=== PATIENT | male | born 1950 | race Caucasian/White ===

== ENCOUNTER → 2018-09-14 15:44 | Outpatient (CLI) | payer MEDICARE, OTHER, SELFPAY ==
[2018-09-14 15:54] LABS: Absolute Lymphocyte Count 0.57 X10^3/ul (0.83-4.51); Basophil# 0.04 X10^3/uL; Basophil% 0.8 % (0-1); Eosinophil# 0.03 X10^3/uL; Eosinophils% 0.6 % (0-5); Hematocrit 36.7 % (40-54); Hemoglobin 11.9 g/dl (13.0-16.5); Lymphocyte # 0.57 X10^3/ul (4.0); Lymphocyte % 11.9 % (19-41); Mean Corp Hgb Conc 32.4 g/gl (32-36); Mean Corpuscular Hgb 28.8 pg (27.0-32.0); Mean Corpuscular Volume 88.9 fL (80-94); Mean Platelet Vol. 9.5 fl (6.2-12.0); Monocyte% 4.2 % (0-10); Neutrophil # 3.95 X10^3/uL (2.7-7.7); Neutrophil % 82.3 % (47-70); Platelet Count 375 K/mm3 (150-450); RBC Distribution Width CV 16.9 % (11.6-14.6); RBC Distribution Width SD 53.3 fl (35.1-43.9); Red Blood Count 4.13 M/mm3 (4.6-6.2); White Blood Count 4.8 K/mm3 (4.4-11.0)
[2018-09-14 15:55] LABS: POSITIVE COUNT NO; POSITIVE DIFFERENTIAL YES; POSITIVE MORPHOLOGY NO
[2018-09-14 15:56] LABS: Differential Indicated SCAN CRITERIA MET
[2018-09-14 16:03] LABS: Creatinine, Serum 0.84 mg/dL (0.70-1.30); EST Glomerular Filtration Rate 97 mL/min (>60); Est Glom Filt Rate - Afr Amer 117 mL/min (>60)
[2018-09-14 16:21] LABS: Differential Comment SCANNED
[2018-09-21 12:55] LABS: CMV by PCR Positive (Negative)
== END ==
DX: B34.9 Viral infection, unspecified (principal)
CPT/HCPCS: 82565; 85025; 87496

== ENCOUNTER → 2018-09-21 | Outpatient (CLI) | payer MEDICARE, SELFPAY ==
[2018-09-21 13:41] LABS: Absolute Lymphocyte Count 0.76 X10^3/ul (0.83-4.51); Basophil# 0.05 X10^3/uL; Basophil% 1.2 % (0-1); Eosinophil# 0.02 X10^3/uL; Eosinophils% 0.5 % (0-5); Hematocrit 37.9 % (40-54); Hemoglobin 12.1 g/dl (13.0-16.5); Lymphocyte # 0.76 X10^3/ul (4.0); Lymphocyte % 18.2 % (19-41); Mean Corp Hgb Conc 31.9 g/gl (32-36); Mean Corpuscular Hgb 27.9 pg (27.0-32.0); Mean Corpuscular Volume 87.5 fL (80-94); Mean Platelet Vol. 9.2 fl (6.2-12.0); Monocyte# 0.39 X10^3/uL; Monocyte% 9.3 % (0-10); Neutrophil # 2.95 X10^3/uL (2.7-7.7); Neutrophil % 70.6 % (47-70); Platelet Count 409 K/mm3 (150-450); RBC Distribution Width SD 50.5 fl (35.1-43.9); Red Blood Count 4.33 M/mm3 (4.6-6.2); White Blood Count 4.2 K/mm3 (4.4-11.0)
[2018-09-21 13:42] LABS: POSITIVE COUNT NO; POSITIVE DIFFERENTIAL NO; POSITIVE MORPHOLOGY NO
[2018-09-21 14:01] LABS: Creatinine, Serum 0.78 mg/dL (0.70-1.30); EST Glomerular Filtration Rate 105 mL/min (>60); Est Glom Filt Rate - Afr Amer 128 mL/min (>60)
[2018-09-23 14:38] LABS: CMV by PCR Positive (Negative)
== END | disposition home or self-care (01) ==
LOC: LABSPEC 13:27
DX: B25.9 Cytomegaloviral disease, unspecified (principal)
CPT/HCPCS: 82565; 85025; 87496

== ENCOUNTER → 2019-09-28 14:24 | Outpatient (CLI) | payer MEDICARE, OTHER, SELFPAY ==
[2019-09-28 17:39] LABS: Absolute Lymphocyte Count 2.46 X10^3/uL (0.83-4.51); Absolute Neutrophil Count 11.8 X10^3/uL (2.0-7.7); Basophil# 0.03 X10^3/uL; Basophil% 0.2 % (0-1); Hematocrit 43.9 % (40-54); Lymphocyte # 2.46 X10^3/ul (4.0); Lymphocyte % 16.1 % (19-41); Mean Corp Hgb Conc 31.9 g/dL (32-36); Mean Corpuscular Volume 87.8 fL (80-94); Mean Platelet Vol. 9.1 fl (6.2-12.0); Monocyte# 0.83 X10^3/uL; Monocyte% 5.4 % (0-10); NRBC Flagged by Analyzer 0 % (0-5); Neutrophil # 11.84 X10^3/uL (2.7-7.7); Neutrophil % 77.5 % (47-70); Platelet Count 432 K/mm3 (150-450); RBC Distribution Width CV 17.1 % (11.6-14.6); RBC Distribution Width SD 53.8 fl (35.1-43.9); White Blood Count 15.3 K/mm3 (4.4-11.0)
[2019-09-28 17:52] LABS: ALB/GLOB Ratio 0.8 RATIO (0.9-2.4); AST(SGOT) 23 U/L (15-37); Alanine Aminotransfer ALT/SGPT 43 U/L (16-61); Albumin, Serum 3.5 g/dL (3.2-5.0); Alkaline Phosphatase 86 U/L (45-117); Anion Gap 7 (5-15); BUN 20 mg/dL (7-18); BUN/Creat Ratio 12.3 RATIO (10-20); Calcium,Total 9.1 mg/dL (8.5-10.1); Chloride 97 mmol/L (98-107); Creatinine, Serum 1.63 mg/dL (0.70-1.30); EST Glomerular Filtration Rate 45 mL/min (>60); Est Glom Filt Rate - Afr Amer 54 mL/min (>60); Globulin 4.4 g/dL (2.2-4.2); Glucose 116 mg/dL (74-106); Potassium 3.6 mmol/L (3.5-5.1); Protein, Total 7.9 g/dL (6.4-8.2); Rheumatoid Factor < 10.0 IU/mL (<15); Sodium Level 133 mmol/L (136-145)
[2019-09-28 18:04] LABS: Erythrocyte Sedimentation Rate 64 mm/hr (0-20)
[2019-09-29 10:03] LABS: Hepatitis B Surface Antibody Non-Reactive; Hepatitis B Surface Antigen Non-Reactive (Nonreactive); Hepatitis C Antibody Non-Reactive (Nonreactive)
[2019-09-29 13:39] LABS: Uric Acid 6.8 mg/dL (3.5-7.2)
[2019-09-30 15:37] LABS: ANTINUCLEAR ANTIBODIES DIRECT Positive (Negative)
[2019-10-01 03:41] LABS: CCP IgG Antibodies 6 units (0-19); Hepatitis B Core AB IgM Negative (Negative)
== END ==
PROVIDERS: PCP Family Medicine; Referring Provider Internal Medicine Rheumatology; Visit Provider Internal Medicine Rheumatology
DX: M70.51 Other bursitis of knee, right knee (principal); K21.9 Gastro-esophageal reflux disease without esophagitis; J44.9 Chronic obstructive pulmonary disease, unspecified; I10 Essential (primary) hypertension; E78.5 Hyperlipidemia, unspecified
CPT/HCPCS: 36415; 80053; 84550; 85025; 85652; 86038; 86140; 86200; 86431; 86705; 86706; 86803; 87340

== ENCOUNTER → 2019-12-17 11:02 | Outpatient (CLI) | payer MEDICARE, OTHER, SELFPAY ==
--- NOTE | 2019-12-17 11:15 | EKG12_ITS ---
Test Reason : PRE OP Blood Pressure : / mmHG Vent. Rate : 107 BPM Atrial Rate : 107 BPM P-R Int : 114 ms QRS Dur : 082 ms QT Int : 326 ms P-R-T Axes : 049 030 044 degrees QTc Int : 435 ms Sinus tachycardia Right atrial enlargement Borderline ECG Confirmed by ABBE THOMAS, ALEXA ([id number]), newspaper photo editor TONE HERR ([id number]) on 12/21/2019 8:10:07 AM Referred By: Terry Pickens Confirmed By:ALEXA MCADAMS MD
[2019-12-17 12:17] LABS: Hematocrit 45.5 % (40-54); Hemoglobin 14.6 g/dL (13.0-16.5); Mean Corp Hgb Conc 32.1 g/dL (32-36); Mean Corpuscular Hgb 28.1 pg (27.0-32.0); Mean Corpuscular Volume 87.7 fL (80-94); Mean Platelet Vol. 8.9 fl (6.2-12.0); Platelet Count 440 K/mm3 (150-450); RBC Distribution Width CV 15.7 % (11.6-14.6); RBC Distribution Width SD 50.4 fl (35.1-43.9); Red Blood Count 5.19 M/mm3 (4.6-6.2); White Blood Count 19.4 K/mm3 (4.4-11.0)
[2019-12-17 12:51] LABS: Anion Gap 8 (5-15); BUN 17 mg/dL (7-18); BUN/Creat Ratio 12.1 RATIO (10-20); Calcium,Total 9.1 mg/dL (8.5-10.1); Chloride 95 mmol/L (98-107); Creatinine, Serum 1.41 mg/dL (0.70-1.30); EST Glomerular Filtration Rate 53 mL/min (>60); Est Glom Filt Rate - Afr Amer 64 mL/min (>60); Glucose 151 mg/dL (74-106); Potassium 3.4 mmol/L (3.5-5.1); Sodium Level 130 mmol/L (136-145)
== END ==
PROVIDERS: PCP Family Medicine; Referring Provider Urology; Visit Provider Urology
DX: Z01.818 Encounter for other preprocedural examination (principal); Z11.59 Encounter for screening for other viral diseases; N40.1 Benign prostatic hyperplasia with lower urinary tract symptoms; I10 Essential (primary) hypertension
CPT/HCPCS: 36415; 80048; 85027; 87635; 93005; C9803; U0003

== ENCOUNTER 2020-08-30 09:33 | Day surgery (SDC) | payer MEDICARE, OTHER, SELFPAY ==
--- NOTE | 2020-08-28 10:44 | EKG12_ITS ---
Test Reason : PRE OP Blood Pressure : / mmHG Vent. Rate : 095 BPM Atrial Rate : 095 BPM P-R Int : 130 ms QRS Dur : 096 ms QT Int : 364 ms P-R-T Axes : 070 018 062 degrees QTc Int : 457 ms Normal sinus rhythm Normal ECG Confirmed by GOPI THOMAS, XOCHILT ([id number]), newspaper photo editor MANI CRAWFORD ([id number]) on 08/29/2020 9:33:53 AM Referred By: Terry Pickens Confirmed By:XOCHILT NGUYỄN MD
[2020-08-30] VITALS (10 sets, daily range): BP systolic 123–159; BP diastolic 79–96; PULSE 84–97; RESP 16–18; TEMP 36.2–36.7; O2SAT 91–99; BMI 29.5
[2020-08-30] MEDS: Lactated Ringers 1,000 ML 100 ML IV (10:21)
[2020-08-30 10:27] LABS: Hematocrit 41.9 % (40-54); Hemoglobin 13.5 g/dL (13.0-16.5); Mean Corp Hgb Conc 32.2 g/dL (32-36); Mean Corpuscular Hgb 25.6 pg (27.0-32.0); Mean Corpuscular Volume 79.5 fL (80-94); Mean Platelet Vol. 8.9 fl (6.2-12.0); Platelet Count 502 K/mm3 (150-450); RBC Distribution Width CV 16.1 % (11.6-14.6); Red Blood Count 5.27 M/mm3 (4.6-6.2); White Blood Count 9.7 K/mm3 (4.4-11.0)
[2020-08-30 10:33] LABS: Partial Thromboplast Time 30.5 Seconds (24.1-36.2); Prothrombin Time (Protime)PT. 12.4 SECONDS (11.7-14.9)
[2020-08-30 10:49] LABS: AST(SGOT) 18 U/L (15-37); Alanine Aminotransfer ALT/SGPT 21 U/L (16-61); Albumin, Serum 2.9 g/dL (3.2-5.0); Alkaline Phosphatase 120 U/L (45-117); Anion Gap 6 (5-15); BUN 13 mg/dL (7-18); BUN/Creat Ratio 9.6 RATIO (10-20); Bilirubin, Direct 0.15 mg/dL (0.00-0.30); Chloride 101 mmol/L (98-107); Creatinine, Serum 1.35 mg/dL (0.70-1.30); EST Glomerular Filtration Rate 56 mL/min (>60); Est Glom Filt Rate - Afr Amer 67 mL/min (>60); Estimated Creatinine Clearance 49.96 ml/min; Globulin 4.6 g/dL (2.2-4.2); Glucose 117 mg/dL (74-106); Potassium 3.2 mmol/L (3.5-5.1); Protein, Total 7.5 g/dL (6.4-8.2); Sodium Level 136 mmol/L (136-145)
--- NOTE | 2020-08-30 11:25 | PROS_PTH ---
PATIENT: DIMITRI HERR LOC: [facility] [place] U#:[id number] AGE/SX: 70/M ROOM: RE08/30/[address]: Dr. Terry Pickens MD : 1950 BED: DIS: 08/31/2020 SPEC #: [id number] RECD: 08/30/20 14:27 STATUS: ANGELA RE #: [id number] JONATHAN: 08/30/20 11:[address]: Terry Pickens DEPT: SURGICAL PATHOLOGY RECD BY: Rika Olivas ENTERED: 08/31/20 08:39 SP TYPE: TURP OTHR DR: Dr. Nathen Monique MD Tissues: Prostate, NOS Procedures: Surgery Specimen Level IV HEADER OPERATION: Cysto, TUR prostate, Olympus PRE-OP DIAGNOSIS: BPH with lower urinary tract symptoms; frequency of micturition; nocturia TISSUE SUBMITTED: Prostate chips MICROSCOPIC DIAGNOSIS Prostate chips, TUR: Benign prostatic hyperplasia, glandular and stromal type. SJ:jj 09/01/2020 MICROSCOPIC DESCRIPTION Slides are reviewed. GROSS DESCRIPTION Received is one container labeled with the patient's name and designated prostate tissue. The specimen consists of multiple irregular fragments of pink-peralta, rubbery, soft tissue that in aggregate weigh 4.5 gm and measure in aggregate 5 x 3 x 0.6 cm. The entire specimen is submitted in four cassettes. / AUDIE:jj 08/31/20 TC:4 CPT: 98459
[2020-08-30] MEDS: Cefazolin 2 GM in 0.9% Normal Saline 100 ML IV (12:00)
--- NOTE | 2020-08-30 12:46 | PCM.HP.STD ---
HPI - General HPI Narrative DIMITRI HERR, is a 70 M who presents for a transurethral resection of the prostate he has significant BPH outlet obstructive symptoms. [facility] Medical History (Updated 08/30/20 @ 12:[address] Terry Pickens MD) Anxiety Cardiology follow-up encounter Chronic cough CPAP (continuous positive airway pressure) dependence Depression Easy bruising Excessive bleeding Gastric reflux High cholesterol History of CHF (congestive heart failure) History of edema History of GI bleed History of irregular heartbeat History of rheumatic fever History of steroid therapy History of stress test Hx of benign essential tremor Hx of cardiac pacemaker Hypertension Loss of hearing Prostate disease Restless legs Shortness of breath on exertion Skin tear Smoker TIA (transient ischemic attack) Home Medications alprazolam [Xanax] 0.5 mg PO BID 08/23/20 [History Last Taken 08/30/20] amlodipine 10 mg PO DAILY 08/23/20 [History Last Taken 08/30/20] ascorbic acid (vitamin C) [Vitamin C] 500 mg PO BID 08/23/20 [History Last Taken Unknown] clomipramine 75 mg PO QHS 08/23/20 [History Last Taken Unknown] mycophenolate mofetil [CellCept] 250 mg PO BID 08/23/20 [History Last Taken 08/30/20] pantoprazole [Protonix] 20 mg PO DAILY 08/23/20 [History Last Taken 08/30/20] potassium chloride 40 meq PO BID 08/23/20 [History Last Taken Unknown] primidone 50 mg PO BID 08/23/20 [History Last Taken 08/30/20] sulfamethoxazole-trimethoprim [Bactrim DS] 1 tab PO MOWEFR 08/23/20 [History Last Taken Unknown] tacrolimus 1 mg PO Q12H 08/23/20 [History Last Taken Unknown] zinc 50 mg PO QHS 08/23/20 [History Last Taken Unknown] ciprofloxacin HCl [Cipro] 500 mg PO BID #14 tab 08/30/20 [Rx Last Taken Unknown] Allergy/AdvReac Type Severity Reaction Status Date / Time fluoxetine [From Prozac] Allergy suicidal Verified 08/30/20 09:57 sertraline [From Zoloft] Allergy sucidal Verified 08/30/20 09:57 Iodinated Contrast Media AdvReac passed out Verified 08/30/20 09:57 rosuvastatin [From Crestor] AdvReac muscle pain Verified 08/30/20 09:57 Surgical History (Updated 08/23/20 @ 10:38 by Kyara Lugo) History of cardiac catheterization History of esophagogastroduodenoscopy (EGD) History of left ventricular assist device (LVAD) Hx laparoscopic cholecystectomy Hx of colonoscopy Hx of heart transplant Hx of heart valve replacement with bioprosthetic valve Social History Smoking Status: Current every day smoker tobacco type: smokeless tobacco ROS Constitutional Constitutional: Denies chills, fever(s) or malaise Eyes Eyes: Denies blurry vision or change in vision ENT HEENT: Reports none Cardiovascular Cardiovascular: Denies chest pain or palpitations Respiratory/Chest Respiratory/Chest: Denies cough or shortness of breath with exertion Gastrointestinal Gastrointestinal: Denies abdominal pain, constipation or diarrhea Musculoskeletal Musculoskeletal: Denies back pain, joint stiffness or joint swelling Integumentary Integumentary: Denies dry skin, jaundice, lesions or rash Neurologic Neurologic: Denies confusion, syncope or weakness Psychiatric Psychiatric: Reports none; Denies anxiety or depression Endocrine Endocrinology: Denies excessive sweating, fatigue or flushing Hematologic/Lymphatic Hematologic/Lymphatic: Denies anemia, easy bleeding or easy bruising Vital Signs Vital Signs Vital Signs: 08/30/20 10:01 Temperature 98.0 F Temperature Source Temporal Pulse Rate 91 Respiratory Rate 16 Respiratory Pattern Normal Blood Pressure 124/91 H Blood Pressure Mean 102 Blood Pressure Source Monitor Blood Pressure Position Semi-Fowlers Blood Pressure Location Right Arm Pulse Ox 99 Oxygen Delivery Method Room Air Weight Weight: 88 kg Body Mass Index (BMI) 29.5 Physical Exam Const alert and oriented x3 General Appearance: cooperative HEENT normocephalic, head/scalp atraumatic, EAC's normal and TM's normal bilaterally Eyes PERRL and EOMs intact bilaterally Pupil: sluggish Neck no lymphadenopathy, supple and no JVD General: trachea midline Lymph Lymphatic: no lymphadenopathy noted, lymphedema and lymphadenopathy Resp normal respiratory effort, normal air movement and clear to auscultation bilaterally Cardio regular rate, regular rhythm and peripheral pulses 2+ throughout GI soft to palpation, non-tender and non-distended Extremity normal capillary refill and no clubbing, cyanosis or edema General Extremity: no tenderness to palpation of joints or extremities Skin no rashes or lesions noted General Skin Exam: turgor normal Lesions: no lesions Rashes: no rashes Neuro CN's II-XII intact bilaterally Speech: speech normal Motor Exam: strength 5/5 throughout; Negative for general weakness Psych thought process normal, cooperative and affect normal Appearance: appropriate Results Lab / Micro Data Result Diagrams: 08/30/20 10:10 08/30/20 10:10 Labs: Laboratory Results - last 24 hr 08/30/20 08/30/20 08/30/20 10:10 10:10 10:10 WBC 9.7 RBC 5.27 Hgb 13.5 Hct 41.9 MCV 79.5 L MCH 25.6 L MCHC 32.2 RDW Std Deviation 46.0 H RDW Coeff of Ishmael 16.1 H Plt Count 502 H MPV 8.9 PT 12.4 INR 1.0 APTT 30.5 Sodium 136 Potassium 3.2 L Chloride 101 Carbon Dioxide 29.0 Anion Gap 6 BUN 13 Creatinine 1.35 H Estim Creat Clear Calc 49.96 Est GFR (MDRD) Af Amer 67 Est GFR (MDRD) Non-Af 56 L BUN/Creatinine Ratio 9.6 L Glucose 117 H Calcium 9.0 Total Bilirubin 0.50 Direct Bilirubin 0.15 AST 18 ALT 21 Alkaline Phosphatase 120 H Total Protein 7.5 Albumin 2.9 L Globulin 4.6 H Assessment & Plan Assessment/Plan (1) BPH with obstruction/lower urinary tract symptoms: PLAN: Plan for TURP
--- NOTE | 2020-08-30 12:47 | PCM.DC ---
Discharge Instructions Diet Discharge Diet: No restrictions Activity Discharge Activity: Return to Normal Activity and May Not Drive (while taking narcotic pain medications.) Dressing / Incision Call your doctor if you observe: Fever of 101 or Higher Follow Up Care Please Follow Up With: Terry Pickens MD When: Call [phone] for an appointment Test Results: Test results from this visit will be discussed in further detail at your follow-up appointment, if applicable. Discharge Plan Admission Primary Reason for Your Visit: EVELINA Attending Provider: Terry Pickens Primary Care Provider: Nathen Monique Instructions Patient Instructions: EVELINA Home Recovery Discharge Orders/Prescriptions Prescriptions: New ciprofloxacin HCl [Cipro] 500 mg tablet 500 mg PO BID Qty: 14 RF: 0 Continued primidone 50 mg Tablet 50 mg PO BID RF: 0 clomipramine 75 mg Capsule 75 mg PO QHS RF: 0 mycophenolate mofetil [CellCept] 250 mg Capsule 250 mg PO BID RF: 0 potassium chloride 10 mEq Tablet Extended Release 40 meq PO BID RF: 0 amlodipine 5 mg Tablet 10 mg PO DAILY RF: 0 sulfamethoxazole-trimethoprim [Bactrim DS] 800-160 mg Tablet 1 tab PO MOWEFR RF: 0 pantoprazole [Protonix] 20 mg Tablet,Delayed Release (Dr/Ec) 20 mg PO DAILY RF: 0 alprazolam [Xanax] 0.5 mg Tablet 0.5 mg PO BID RF: 0 ascorbic acid (vitamin C) [Vitamin C] 500 mg Tablet 500 mg PO BID RF: 0 tacrolimus 0.5 mg Capsule 1 mg PO Q12H RF: 0 zinc 50 mg Capsule 50 mg PO QHS RF: 0 Referrals / Follow Up: Terry Pickens MD [STAFF PHYSICIAN] - Nathen Monique MD [Primary Care Provider] - Disposition Disposition (needs filled in before D/C Order can be placed): Home, Self Care
--- NOTE | 2020-08-30 12:48 | OP.PCM_ITS ---
Report of Operation Date of Procedure: 08/30/20 Pre-Operative Diagnosis: BPH with fraction Post-Operative Diagnosis: Same Surgery/Procedure Performed:: Transurethral section of prostate Description of Surgical Findings:: In the preoperative setting I discussed with the patient how the surgery would be done with expect afterwards. We discussed how a prostate resection is done and we discussed the risk of the surgery including, bleeding, infection, retrograde ejaculation, changes with ejaculation or intercourse,. We discussed the possibility that the resection of the prostate may not alleviate his urinary symptoms. We discussed the small risk of developing scar tissue along the urethral channel and strictures. We also discussed the chance of the prostate could grow back and he may need further surgery or treatment in the future for prostate problems. Patient was taken back to the operating room, timeout procedure was performed, he was identified and marked and placed on the operating room table. He underwent general anesthesia. He was placed in dorsolithotomy position. Penis and testicles were prepped and draped in usual sterile fashion. Went into the bladder using the visual obturator with a resectoscope. Once inside the bladder identified the right and left ureteral orifice. I then identified the prostate and the anatomy of the prostate. I marked out the area of the sphincter and the verumontanum was identified. I then proceeded with the prostate resection first resected the median lobe. And then resected the right lobe of the prostate. Then to resect the left lobe of the prostate. I then resected the apical tissue of the prostate. Made sure that there was no injury to the sphincter or the verumontanum was still intact. At the end of the resection all the chips were Ellik out of the bladder. I then identified the left and right ureteral orifice and these were confirmed to be in good position and effluxing and not injured. The resectoscope was removed, a 22 Setswana catheter was placed into the bladder on continuous irrigation. And the urine was fairly light pink color and draining normally. He was taken back to the PACU in good condition. Surgeon: Terry Pickens Type of Anesthesia: General Admit VTE Documentation VTE Present on Admission: No VTE Mechan Device Prophylaxis: SCD's
[2020-08-30] MEDS: Potassium Chloride Oral Tablet 20 MEQ 40 MEQ PO (16:24)
[2020-08-30] MEDS: Smz/Tmp Ds Tablet 1 TABLET PO (16:25)
[2020-08-30] MEDS: Primidone 50 MG Tablet PO (21:49)
[2020-08-30] MEDS: Ascorbic Acid 500 MG Tablet PO (21:49)
[2020-08-30] MEDS: Mycophenolate Mofetil 250 MG Capsule PO (21:49)
[2020-08-30] MEDS: Ciprofloxacin 400 MG/200 ML BAG 200 MG IV (21:49)
[2020-08-30] MEDS: ALPRAZolam 0.5 MG Tablet PO (21:49)
[2020-08-30] MEDS: Tacrolimus Anhydrous 1 MG Capsule PO (21:49)
[2020-08-31] MEDS: Lactated Ringers 1,000 ML 100 ML IV (01:38)
[2020-08-31] MEDS: Ketorolac 15 MG/ML Vial IV (01:43)
[2020-08-31 02:55] VITALS: BP 151/93; PULSE 102; RESP 16; TEMP 37; O2SAT 96
[2020-08-31] MEDS: Potassium Chloride Oral Tablet 20 MEQ 40 MEQ PO (08:06)
[2020-08-31 08:10] VITALS: BP 150/78; PULSE 82; RESP 12; TEMP 37.3
[2020-08-31 08:21] VITALS: PULSE 58; RESP 12; O2SAT 93
[2020-08-31] MEDS: amLODIPine 10 MG Tablet PO (09:23)
[2020-08-31] MEDS: Primidone 50 MG Tablet PO (09:23)
[2020-08-31] MEDS: Mycophenolate Mofetil 250 MG Capsule PO (09:23)
[2020-08-31] MEDS: Pantoprazole Sodium 20 MG Tablet PO (09:24)
[2020-08-31] MEDS: ALPRAZolam 0.5 MG Tablet PO (09:24)
[2020-08-31] MEDS: Ascorbic Acid 500 MG Tablet PO (09:24)
[2020-08-31] MEDS: Tacrolimus Anhydrous 1 MG Capsule PO (09:24)
[2020-08-31] MEDS: Ciprofloxacin 400 MG/200 ML BAG 200 MG IV (09:34)
--- NOTE | 2020-08-31 10:46 | PHA.DC.MC ---
Pharmacy Service has performed discharge medication reconciliation and counseling for this patient. The patient was counseled on the following discharge medications and changes in medications for homegoing were reviewed. 1. CIPRO The Reason for Use, instructions for use, and potential side effects were reviewed for all new medications. The patient's questions regarding all of their medications were answered. The patient was able to verbally demonstrate an understanding of their discharge medications. Home Medications alprazolam [Xanax] 0.5 mg PO BID 08/23/20 amlodipine 10 mg PO DAILY 08/23/20 ascorbic acid (vitamin C) [Vitamin C] 500 mg PO BID 08/23/20 clomipramine 75 mg PO QHS 08/23/20 mycophenolate mofetil [CellCept] 250 mg PO BID 08/23/20 pantoprazole [Protonix] 20 mg PO DAILY 08/23/20 potassium chloride 40 meq PO BID 08/23/20 primidone 50 mg PO BID 08/23/20 sulfamethoxazole-trimethoprim [Bactrim DS] 1 tab PO MOWEFR 08/23/20 tacrolimus 1 mg PO Q12H 08/23/20 zinc 50 mg PO QHS 08/23/20 ciprofloxacin HCl [Cipro] 500 mg PO BID #14 tab 08/30/20 The patient's discharge medication list was reviewed for discrepancies and discrepancies were resolved.
== END 2020-08-31 13:09 | disposition home or self-care (01) ==
LOC: SDC 09:34 → AC 09:34 → MS3 11:23
PROVIDERS: Anesthesiology; PCP Family Medicine; Referring Provider Urology; Visit Provider Urology
PROC: (CPT 52601; principal; 2020-08-30 11:15)
DX: N40.1 Benign prostatic hyperplasia with lower urinary tract symptoms (principal); N13.8 Other obstructive and reflux uropathy; F41.9 Anxiety disorder, unspecified; I50.9 Heart failure, unspecified; I11.0 Hypertensive heart disease with heart failure; K21.9 Gastro-esophageal reflux disease without esophagitis; F32.9 Major depressive disorder, single episode, unspecified; E78.00 Pure hypercholesterolemia, unspecified; G25.0 Essential tremor; G25.81 Restless legs syndrome; H91.90 Unspecified hearing loss, unspecified ear; F17.290 Nicotine dependence, other tobacco product, uncomplicated; Z79.899 Other long term (current) drug therapy; Z95.0 Presence of cardiac pacemaker; Z94.1 Heart transplant status; Z79.82 Long term (current) use of aspirin; Z79.52 Long term (current) use of systemic steroids; R35.0 Frequency of micturition; R35.1 Nocturia
CPT/HCPCS: 00914; 52601; 80048; 80076; 85027; 85610; 85730; 87426; 88305; 93005; 99251; C9803; J7120; G0463; J0744

== ENCOUNTER → 2022-07-08 | Outpatient (CLI) | payer MEDICARE, OTHER, SELFPAY ==
[2022-07-08 15:55] LABS: Absolute Lymphocyte Count 3.77 X10^3/uL (0.83-4.51); Absolute Neutrophil Count 6.3 X10^3/uL (2.0-7.7); Basophil# 0.09 X10^3/uL; Basophil% 0.8 % (0-1); Eosinophil# 0.24 X10^3/uL; Eosinophils% 2.1 % (0-5); Hematocrit 37.4 % (40-54); Hemoglobin 12.4 g/dL (13.0-16.5); Lymphocyte # 3.77 X10^3/ul (0.83-4.51); Lymphocyte % 33.2 % (19-41); Mean Corp Hgb Conc 33.2 g/dL (32-36); Mean Corpuscular Hgb 30.5 pg (27.0-32.0); Mean Corpuscular Volume 91.9 fL (80-94); Mean Platelet Vol. 8.7 fl (6.2-12.0); Monocyte% 7.9 % (0-10); NRBC Flagged by Analyzer 0 % (0-5); Neutrophil # 6.32 X10^3/uL (2.7-7.7); Neutrophil % 55.6 % (47-70); Platelet Count 368 K/mm3 (150-450); RBC Distribution Width CV 13.6 % (11.6-14.6); RBC Distribution Width SD 46.3 fl (35.1-43.9); Red Blood Count 4.07 M/mm3 (4.6-6.2); White Blood Count 11.4 K/mm3 (4.4-11.0)
[2022-07-08 15:59] LABS: Erythrocyte Sedimentation Rate 37 mm/hr (0-20)
[2022-07-08 16:47] LABS: Vitamin B12 387 pg/mL (211-911); Vitamin D,25 Hydroxy 29.9 ng/mL
[2022-07-08 16:54] LABS: Hemoglobin A1c 5.6 % (3.8-5.6)
[2022-07-08 17:08] LABS: ALB/GLOB Ratio 0.7 RATIO (0.9-2.4); AST(SGOT) 23 U/L (15-37); Alanine Aminotransfer ALT/SGPT 22 U/L (16-61); Albumin, Serum 3.1 g/dL (3.2-5.0); Alkaline Phosphatase 102 U/L (45-117); Anion Gap 7 (5-15); BUN 28 mg/dL (7-18); BUN/Creat Ratio 10.2 RATIO (10-20); CRP 3.75 mg/L (0.0-3.0); Calcium,Total 8.5 mg/dL (8.5-10.1); Chloride 106 mmol/L (98-107); Creatinine, Serum 2.74 mg/dL (0.70-1.30); EST Glomerular Filtration Rate 25 mL/min (>60); Est Glom Filt Rate - Afr Amer 30 mL/min (>60); Globulin 4.3 g/dL (2.2-4.2); Glucose 107 mg/dL (74-106); Magnesium 2.2 mg/dL (1.6-2.6); Potassium 4.9 mmol/L (3.5-5.1); Protein, Total 7.4 g/dL (6.4-8.2); Sodium Level 137 mmol/L (136-145); T4 Free Direct 0.69 ng/dL (0.76-1.46); T4 Total, Thyroxin 6.3 ug/dL (4.5-12.1); Thyroid Stim Hormone (TSH) 4.82 uIU/mL (0.358-3.74)
[2022-07-12 15:08] LABS: VITAMIN B6 6.7 ug/L (3.4-65.2); Vitamin B1, Thiamine 101.6 nmol/L (66.5-200.0)
== END | disposition home or self-care (01) ==
PROVIDERS: PCP Family Medicine; Referring Provider Student in an Organized Health Care Education/Training Program; Visit Provider Student in an Organized Health Care Education/Training Program
DX: G60.8 Other hereditary and idiopathic neuropathies (principal); I73.89 Other specified peripheral vascular diseases
CPT/HCPCS: 36415; 80053; 82306; 82607; 82746; 83036; 83735; 84207; 84425; 84436; 84439; 84443; 84481; 85025; 85652; 86140

== ENCOUNTER → 2022-07-11 | Outpatient (CLI) | payer MEDICARE, OTHER, SELFPAY ==
--- NOTE | 2022-07-11 13:04 | VDLE_ITS ---
Reason For Study: LEG PAIN RIGHT LEFT CFV is compressible, spontaneous, phasic, CFV is compressible, spontaneous, phasic, competent and demonstrates normal competent, and demonstrates normal augmentation. augmentation. FV is compressible, spontaneous, phasic, FV is compressible, spontaneous, phasic, competent and demonstrates normal competent and demonstrates normal augmentation. augmentation. POP V is compressible, spontaneous, phasic, POP V is compressible, spontaneous, phasic, competent and demonstrates normal competent and demonstrates normal augmentation. augmentation. T/P Trunk is compressible. T/P Trunk is compressible. PTV is compressible. PTV is compressible. RT PerV is compressible. LT PerV is compressible. SFJ is competent and measures 0.66 x 0.69 cm. SFJ is competent and measures 0.77 x 0.76 cm. GSV proximal thigh measures 0.22 x 0.29 cm. GSV proximal thigh measures 0.29 x 0.30 cm. GSV at knee measures 0.25 x 0.29 cm. GSV at knee measures 0.15 x 0.15 cm. GSV is competent throughout. GSV is competent throughout. SSV proximal calf is competent and measures SSV proximal calf is INCOMPETENT for greater 0.19 x 0.23 cm. than 0.5 seconds and measures 0.26 x 0.23 cm. Procedure Exam performed in department. The exam was diagnostic. VL/Venous Duplex US - Yimi Extrem Interpretation Summary Deep veins of the lower extremities are bilaterally patent and compressible seg mentally. There is no evidence of deep vein thrombosis on either side. Valvular competence appears in tact within the proximal deep venous systems bilaterally. The great saphenous veins appear bila terally patent and compressible segmentally. Sapheno-femoral junctions are bilaterally competent . Valvular competence appears to be intact segmentally within the great saphenous veins bilaterally. The right small saphenous vein is patent and competent. The left small saphenous vein is patent and incompetent. Ordering Physician: Mulugeta Hayes Referring Physician: Mulugeta Hayes Performed By: Farooq Osborn RVT
--- NOTE | 2022-07-11 13:04 | ART_ITS ---
Reason For Study: PVD Procedure A bilateral lower extremity continuous wave Doppler with analog waveform analysis,segmental pressures,and ankle brachial indexes without exercise. Left Segmental Pressures Left brachial= 175mmHg. Left posterior tibial artery = 200mmHg. Left dorsalis pedis artery = >254mmHg. The left posterior tibial artery waveforms are triphasic. The left dorsalis pedis waveforms are triphasic. Right Segmental Pressures Right brachial= 178mmHg. Right posterior tibial artery = >254mmHg. Right dorsalis pedis artery = 181mmHg. The right posterior tibial artery waveforms are triphasic. The right dorsalis pedis waveforms are triphasic. Indices The right ankle brachial index by the posterior tibial artery is N/C. The right ankle brachial index by the dorsalis pedis is 1.02. The left ankle brachial index by the posterior tibial artery is 1.12. The left ankle brachial index by the dorsalis pedis is N/C. VL/Lower Ext Art Exam w/o Exercis Interpretation Summary Triphasic Doppler waveforms are noted at ankle level bilaterally. Pulse-volume recordings appear satisfactory at low thigh, calf, and ankle levels bilaterally. Resting ankle-br achial indices are normal bilaterally. There is no evidence of significant arterial occlusive disease in the lower ext remities bilaterally. Ordering Physician: Mulugeta Hayes Referring Physician: Nathen Monique Performed By: Farooq Osborn RVT
== END | disposition home or self-care (01) ==
LOC: CVS 12:51
PROVIDERS: PCP Family Medicine; Referring Provider Student in an Organized Health Care Education/Training Program; Visit Provider Student in an Organized Health Care Education/Training Program
DX: I73.89 Other specified peripheral vascular diseases (principal); G60.8 Other hereditary and idiopathic neuropathies; M79.671 Pain in right foot; M79.672 Pain in left foot
CPT/HCPCS: 93923; 93970

== ENCOUNTER → 2022-12-09 | Outpatient (CLI) | payer MEDICARE, OTHER, SELFPAY ==
--- NOTE | 2022-12-09 12:35 | VDUE_ITS ---
Reason For Study: Preop Right Arm Left Arm Rt Brachial A: 0.61cm x 0.67cm, 83cm/s Lt Brachial A: 0.65cm x 0.57cm, 105cm/s Rt Radial A: 0.26cm x 0.25cm, 71cm/s. Lt Radial A: 0.23cm x 0.25cm, 76cm/s. Cephalic Vein at distal forearm measures Cephalic Vein at distal forearm measures 0.08cm x 0.10 cm. 0.09cm x 0.09 cm. Cephalic Vein at mid forearm measures 0.15cm Cephalic Vein at mid forearm measures 0.11cm x 0.15 cm. x 0.12 cm. Cephalic Vein proximal forearm measures Cephalic Vein proximal forearm measures 0.37cm x 0.43 cm. 0.46cm x 0.51 cm. Cephalic Vein distal upper arm measures Cephalic Vein distal upper arm measures 0.17cm x 0.19 cm. 0.46cm x 0.50 cm. Cephalic Vein at mid upper arm measures Cephalic Vein at mid upper arm measures 0.08cm x 0.08 cm. 0.44cm x 0.46 cm. Cephalic Vein at proximal upper arm measures Cephalic Vein at proximal upper arm measures 0.18cm x 0.18 cm. 0.37cm x 0.39 cm. Proximal Basilic vein measures 0.33cm x 0.34 Proximal Basilic vein measures 0.35cm x 0.34 cm. cm. Mid Basilic vein measures 0.29cm x 0.29 cm. Mid Basilic vein measures 0.33cm x 0.35 cm. Distal Basilic vein measures 0.23cm x 0.22 Distal Basilic vein measures 0.24cm x 0.22 cm. cm. VL/Dialysis Vein Map PRE-OP BILAT Interpretation Summary Patent and compressible bilateral upper extremity cephalic and basilic veins. D iminutive bilateral forearm cephalic veins. Diminutive right upper arm cephalic vein. Adequate left upper arm cephalic vein. Bilateral upper arm basilic veins of adequate caliber Normal bilateral radial and brachial artery diameter and flow Ordering Physician: Josue Orr Referring Physician: Nathen Monique Performed By: Melinda Shah, MITUL, RVT ???
== END | disposition home or self-care (01) ==
LOC: CVS 12:32
PROVIDERS: PCP Family Medicine; Referring Provider Student in an Organized Health Care Education/Training Program; Visit Provider Student in an Organized Health Care Education/Training Program
DX: Z01.818 Encounter for other preprocedural examination (principal); N18.4 Chronic kidney disease, stage 4 (severe)
CPT/HCPCS: 93985

== ENCOUNTER 2023-01-23 06:00 | Day surgery (SDC) | payer MEDICARE, OTHER, SELFPAY ==
--- NOTE | 2023-01-16 10:06 | EKG12_ITS ---
Test Reason : PRE OP Blood Pressure : / mmHG Vent. Rate : 082 BPM Atrial Rate : 082 BPM P-R Int : 140 ms QRS Dur : 094 ms QT Int : 396 ms P-R-T Axes : 071 038 071 degrees QTc Int : 462 ms Normal sinus rhythm Normal ECG Confirmed by GERONIMO THOMAS, SRINI ([id number]), city editor MANI CRAWFORD ([id number]) on 01/20/2023 10:41:35 AM Referred By: Josue Orr Confirmed By:ERICK MELTON MD
[2023-01-16 11:06] LABS: Hematocrit 34.2 % (40-54); Hemoglobin 10.5 g/dL (13.0-16.5); Mean Corp Hgb Conc 30.7 g/dL (32-36); Mean Corpuscular Hgb 28.1 pg (27.0-32.0); Mean Corpuscular Volume 91.4 fL (80-94); Mean Platelet Vol. 9.3 fl (6.2-12.0); Platelet Count 299 K/mm3 (150-450); RBC Distribution Width CV 15.1 % (11.6-14.6); Red Blood Count 3.74 M/mm3 (4.6-6.2); White Blood Count 7.4 K/mm3 (4.4-11.0)
[2023-01-16 11:24] LABS: Anion Gap 5 (5-15); BUN 18 mg/dL (7-18); Calcium,Total 8.6 mg/dL (8.5-10.1); Chloride 100 mmol/L (98-107); Creatinine, Serum 3.61 mg/dL (0.70-1.30); EST Glomerular Filtration Rate 18 mL/min (>60); Est Glom Filt Rate - Afr Amer 22 mL/min (>60); Glucose 133 mg/dL (74-106); Potassium 4.2 mmol/L (3.5-5.1); Sodium Level 135 mmol/L (136-145)
[2023-01-23] VITALS (8 sets, daily range): BP systolic 129–145; BP diastolic 80–91; PULSE 81–90; RESP 10–18; TEMP 36.9–37.2; O2SAT 91–98; BMI 26.4
--- NOTE | 2023-01-23 06:42 | DCINST_ITS ---
Discharge Instructions Procedure Fistula Diet Discharge Diet: Renal Diet Activity Discharge Activity: May Not Drive (for 2-3 days or while taking narcotic pain medications.), May Shower and May Take a Tub Bath (in 5 days.) Lifting Restrictions: 5 pounds Keep extremity elevated above heart level: - (Keep arm elevated above the heart level for 3 days.) Dressing / Incision Call your doctor if your incision/area has: Continuous Slow Oozing, Sudden Increased Bleeding (apply pressure and call your doctor.), Increased Pain/ Swelling, Increased Redness and Foul Smelling Discharge Call your doctor if you observe: Fever of 101 or Higher Suture Line Care: Avoid Pulling/Pushing and Avoid Pinching/Bending Cleanse incision/area with: Keep Dressing Clean & Dry Additional Dressing/Incision Instructions:: Change or remove dressing in one day. May protect with a gauze bandaid. Follow Up Care Please Follow Up With: Josue Orr MD When: Call [phone] to make an appointment for suture removal and follow up in 1 week. Test Results: Test results from this visit will be discussed in further detail at your follow- up appointment, if applicable. Discharge Plan Admission Attending Provider: Josue Orr Primary Care Provider: Nathen Monique Discharge Orders/Prescriptions Prescriptions: No Action aspirin 81 mg tablet,delayed release (DR/EC) 81 mg PO .COMPLEX Rx Instructions: 81 mg orally MWF; clonidine HCl 0.1 mg tablet 0.1 mg PO Q4H PRN (Reason: HTN/TREMORS) carvedilol 12.5 mg tablet 12.5 mg PO DAILY Rx Instructions: must administer with a meal/food hydralazine 25 mg tablet 25 mg PO TID isosorbide mononitrate 20 mg tablet 25 mg PO TID Rx Instructions: give doses 7 hrs apart primidone 50 mg Tablet 50 mg PO BID clomipramine 75 mg Capsule 75 mg PO QHS mycophenolate mofetil [CellCept] 250 mg Capsule 250 mg PO BID amlodipine 5 mg Tablet 10 mg PO DAILY pantoprazole [Protonix] 20 mg Tablet,Delayed Release (Dr/Ec) 20 mg PO DAILY alprazolam [Xanax] 0.5 mg Tablet 0.5 mg PO BID tacrolimus 0.5 mg Capsule 1 mg PO Q12H Referrals / Follow Up: Nathen Monique MD [Primary Care Provider] - Disposition Disposition (needs filled in before D/C Order can be placed): Home, Self Care
--- NOTE | 2023-01-23 06:42 | HP.PCM_ITS ---
History and Physical Date of Admission: 01/23/23 Is patient in pain?: No Allergies fluoxetine [From Prozac] Allergy (Verified 12/12/22 13:07) suicidalsertraline [From Zoloft] Allergy (Verified 12/12/22 13:07) sucidalIodinated Contrast Media Adverse Reaction (Verified 12/12/22 13:07) passed outrosuvastatin [From Crestor] Adverse Reaction (Verified 12/12/22 13:07) muscle pain Medications alprazolam 0.5 mg tablet (Xanax) 0.5 mg PO BID 08/23/20 [History Confirmed 12/12/22] amlodipine 5 mg tablet 10 mg PO DAILY 08/23/20 [History Confirmed 12/12/22] ascorbic acid (vitamin C) 500 mg tablet (Vitamin C) 500 mg PO BID 08/23/20 [History Confirmed 08/23/20] clomipramine 75 mg capsule 75 mg PO QHS 08/23/20 [History Confirmed 12/12/22] mycophenolate mofetil 250 mg capsule (CellCept) 250 mg PO BID 08/23/20 [History Confirmed 12/12/22] pantoprazole 20 mg tablet,delayed release (Protonix) 20 mg PO DAILY 08/23/20 [History Confirmed 12/12/22] primidone 50 mg tablet 50 mg PO BID tremors 08/23/20 [History Confirmed 08/30/20] sulfamethoxazole 800 mg-trimethoprim 160 mg tablet (Bactrim DS) 1 tab PO MOWEFR 08/23/20 [History Confirmed 08/23/20] tacrolimus 0.5 mg capsule, immediate-release 1 mg PO Q12H 08/23/20 [History Confirmed 08/23/20] aspirin 81 mg tablet,delayed release 81 mg PO DAILY 12/12/22 [History Confirmed 12/12/22] carvedilol 12.5 mg tablet 12.5 mg PO DAILY 12/12/22 [History Confirmed 12/12/22] clonidine HCl 0.1 mg tablet 0.1 mg PO Q4H PRN 12/12/22 [History Confirmed 12/12/22] diphenhydramine HCl 25 mg capsule (Allergy (diphenhydramine)) 25 mg PO Q4H PRN 12/12/22 [History Confirmed 12/12/22] hydralazine 25 mg tablet 25 mg PO TID 12/12/22 [History Confirmed 12/12/22] isosorbide mononitrate 20 mg tablet 25 mg PO TID 12/12/22 [History Confirmed 12/12/22] [facility] Medical History (Updated 12/12/22 @ 13:[address] Josue Orr MD) Anxiety Cardiology follow-up encounter Chronic cough CPAP (continuous positive airway pressure) dependence Depression Easy bruising Excessive bleeding Gastric reflux High cholesterol History of CHF (congestive heart failure) History of edema History of GI bleed History of irregular heartbeat History of rheumatic fever History of steroid therapy History of stress test Hx of benign essential tremor Hx of cardiac pacemaker Hypertension Loss of hearing Prostate disease Restless legs Shortness of breath on exertion Skin tear Smoker TIA (transient ischemic attack) Surgical History History of cardiac catheterization History of esophagogastroduodenoscopy (EGD) History of left ventricular assist device (LVAD) Hx laparoscopic cholecystectomy Hx of colonoscopy Hx of heart transplant Hx of heart valve replacement with bioprosthetic valve Family History (Updated 12/12/22 @ 13:05 by Destiny Peacock) Father Heart disease Social History (Updated 12/12/22 @ 13:06 by Destiny Peacock) Smoking Status: Current every day smoker tobacco type: smokeless tobacco alcohol intake: never substance use type: does not use HPI HPI HPI: 72-year-old gentleman being referred by Dr Raven Campos for surgical consultation regarding creation of arteriovenous fistula to assist with hemodialysis. On December 09, 2022 the patient had bilateral extremity vein mapping. Results are noted below. Bilateral forearm cephalic veins appear to be quite small. The cephalic vein of the left upper arm appeared to be quite adequate. Bilateral basilic veins appear to be appropriate. I have personally interpreted and reviewed those images. 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 He is monitored per Dr. Sushma Cason at [facility] twice a year. He has had indwelling right chest tunneled hemodialysis catheters since October 2022. He states that he has had multiple IVs in the past. He does not recall and a central venous access device left chest or neck but has had devices on the right and he states that typically through the right neck they do cardiac biopsies to assess for possible rejection. He states the only anticoagulant that he is on his low-dose aspirin. He has not had any acute recent illnesses other than the gradual progression of his chronic kidney disease with subsequent failure. He is right arm dominant The patient shares with me that he continues to smoke cigarettes. He claims only a couple per day. He he does share that he has been instructed to cease multiple times previously by healthcare providers. December 09, 2022 Reason For Study: Preop Right Arm Left Arm Rt Brachial A: 0.61cm x 0.67cm, 83cm/s Lt Brachial A: 0.65cm x 0.57cm, 105cm/s Rt Radial A: 0.26cm x 0.25cm, 71cm/s. Lt Radial A: 0.23cm x 0.25cm, 76cm/s. Cephalic Vein at distal forearm measures Cephalic Vein at distal forearm measures 0.08cm x 0.10 cm. 0.09cm x 0.09 cm. Cephalic Vein at mid forearm measures 0.15cm Cephalic Vein at mid forearm measures 0.11cm x 0.15 cm. x 0.12 cm. Cephalic Vein proximal forearm measures Cephalic Vein proximal forearm measures 0.37cm x 0.43 cm. 0.46cm x 0.51 cm. Cephalic Vein distal upper arm measures Cephalic Vein distal upper arm measures 0.17cm x 0.19 cm. 0.46cm x 0.50 cm. Cephalic Vein at mid upper arm measures Cephalic Vein at mid upper arm measures 0.08cm x 0.08 cm. 0.44cm x 0.46 cm. Cephalic Vein at proximal upper arm measures Cephalic Vein at proximal upper arm measures 0.18cm x 0.18 cm. 0.37cm x 0.39 cm. Proximal Basilic vein measures 0.33cm x 0.34 Proximal Basilic vein measures 0.35cm x 0.34 cm. cm. Mid Basilic vein measures 0.29cm x 0.29 cm. Mid Basilic vein measures 0.33cm x 0.35 cm. Distal Basilic vein measures 0.23cm x 0.22 Distal Basilic vein measures 0.24cm x 0.22 cm. cm. VL/Dialysis Vein Map PRE-OP BILAT Interpretation Summary Patent and compressible bilateral upper extremity cephalic and basilic veins. Diminutive bilateral forearm cephalic veins. Diminutive right upper arm cephalic vein. Adequate left upper arm cephalic vein. Bilateral upper arm basilic veins of adequate caliber Normal bilateral radial and brachial artery diameter and flow Ordering Physician: Josue Orr Referring Physician: Nathen Monique Performed By: Melinda Shah, RDLEYDI, RVT General General: No weight change, appetite, fatigue, colon cancer, breast cancer or weakness HEENT HEENT: No difficulty swallowing, eye injury, eye surgery, swollen glands or hoarseness Endo Endocrine: No thyroid disease, diabetes mellitus, thyroid cancer, Hair loss, heat intolerance or cold intolerance Skin Skin: No rash or changing moles Breast Breast: No left breast lump, right breast lump, nipple discharge, breast pain, abnormal mammogram, abnormal US or breast enlargement Musc Musculoskeletal: No back problems, arthritis, rheumatoid arthritis, gout or max int pain Cardio Cardiovascular: Yes high blood pressure; No murmur, pacemaker, heart disease, atrial fibrillation, heart attack, heart stent, palpitations, shortness of breat with exertion or chest pain Additional Details: Heart transplant 2018 Psych Psychiatric: No depression, anxiety or hearing voices Resp Respiratory: Yes shortness of breath, Yes sleep apnea, No cough, No COPD, No asthma, No emphysema and No wheezing Gastro Gastrointestinal: No abdominal pain, No nausea or vomiting, No diarrhea, No constipation, No blood in stool, No acid reflux, No hemorrhoids, No ulcers, No gallbladder problem and No black,tarry stools Larry Hematologic: No blood thinners, No blood disorders, No bleeding, No anemia and No blood clots Neuro Neurologic: No system reviewed and no additional complaints, except as documented, No as per HPI, No abnormal gait, No abnormal hearing, No abnormal movements, No abnormal speech, No behavioral changes, No burning sensations, No confusion, No convulsions, No disequilibrium, No dizziness, No localized weakness, No frequent falls, No headache(s), No lack of coordination, No loss of vision, No memory loss, No numbness, No other visual disturbances, No radicular pain, No restless legs, No sensory deficit, No syncope, No tingling, No tremor(s), No weakness and No other Exam Const General: cooperative, comfortable and no acute distress [facility] Head: normal to inspection Eyes General: appearance normal, both eyes and all related structures Neck Neck: normal visual inspection Other: Right chest neck has tunneled dialysis catheters into the right internal jugular vein. I am not detecting any clavicular adenopathy. Chest Chest palpation & inspection: normal inspection of the chest Resp Effort & Inspection: normal respiratory effort Auscultation: clear to auscultation bilaterally Cardio Rate: regular rate Rhythm: regular rhythm GI Inspection: normal to inspection Palpation: soft and no hepatosplenomegaly Skin General: no rashes or lesions noted Neuro General: patient alert, patient awake and patient oriented x3 Extrem Other: Bilateral extremities has diffuse hyperpigmentation bilateral forearms with thin skin. Left upper extremity ultrasound inspection of the forearm demonstrates a very small cephalic vein. At the antecubital space over the cephalic vein appears to be of quite adequate diameter and unable to follow that up to the shoulder appears to be patent and compressible no thrombus noted. Left radial pulse 3+. Left brachial pulse 3+. Both hands warm viable and pink Psych Appearance: grossly normal Assessment and Plan Assessment and Plan (1) Dependence on renal dialysis: Status: Acute Plan I propose for the patient a left upper arm brachial to cephalic arteriovenous hemodialysis fistula. He is aware of the technique, benefit, risk and alternatives. I would propose that we do this under monitored anesthesia care and local anesthetic. He should be able to continue all of his medications. He is aware that there are no guarantees of success. He is additionally aware that we should pursue this so that we can subsequently be able to remove his tunneled dialysis catheters which are currently placing him at increased risk for infection. He is aware that a fistula offers no guarantees of success and might require additional intervention. This had an opportunity ask and have questions answered we will schedule procedure at his discretion. I appreciate the opportunity of assisting with his surgical care. Copy: Dr. Nathen Monique and Dr Raven Campos and Dr. Sushma Cason [facility] I have examined the patient and the H&P has been reviewed. There are no clinical changes since date of exam. Josue Orr M.D., F.A.C.S.
[2023-01-23] MEDS: 0.9% Normal Saline (500mL Bag) 500 ML 15 ML IV (07:16)
[2023-01-23] MEDS: Cefazolin 2 GM in 0.9% Normal Saline (100mL Bag) 100 ML IV (07:30)
[2023-01-23] MEDS: Bupivacaine Mpf 0.5% 30 ML VIAL (07:55)
[2023-01-23] MEDS: Lidocaine 1% (30 ml sdv) 30 ML Vial (07:55)
[2023-01-23] MEDS: Heparin Injection (Vial) 5,000 UNIT/ML VIAL 5000 UNIT (08:33)
--- NOTE | 2023-01-23 08:52 | OP.PCM_ITS ---
Report of Operation Date of Procedure: 01/23/23 Pre-Operative Diagnosis: Hemodialysis dependent in need of arteriovenous hemodi alysis fistula Post-Operative Diagnosis: Same Surgery/Procedure Performed:: Left upper arm brachial to cephalic arteriovenous hemodialysis fistula creation Description of Surgical Findings:: Timeout informed consent was obtained. 72-year-old gentleman was taken to the operating placed on the table underwent monitored anesthesia care. Ancef 2 g were given intravenously. Clean procedure. The left extremity was sterilely prepped and draped. 1% lidocaine mixed 50-50 with 0.5% Marcaine was used as a local anesthetic. 10 cc was used. A slightly oblique incision was made just proximal to the antecubital crease sharp and blunt dissection was used to identify the cephalic vein it was carefully and tediously dissected free and mobilized for several centimeters proximally. Then sharp and blunt dissection used to identify the brachial artery and it was slightly elevated. The patient received 8000 units of heparin intravenously. After adequate circulation time the vein was ligated distally with a 3-0 Vicryl ligature. Peripheral vascular clamps were placed on the brachial artery 11 blade was used to make an arteriotomy which was extended with Reid scissors. The vein was gently spatulated. A end-to-side venous to arterial anastomosis was created with a running 7-0 Prolene. Hemostasis was intact good positioning was achieved. Clamps were removed. Instantly there was a palpable thrill. The hand was inspected and appeared to be pink and viable. There is still a 2+ left radial pulse. The patient received 20 mg of protamine. The subcutaneous tissues were approximated interrupted 3-0 Vicryl subdermal stitch. Skin edges proximal and running subicular 4-0 Monocryl. Steri-Strips Telfa tape dressings applied. Sponge and instrument and needle counts were reported to the surgeon to be correct. Specimens none. Drains none. Blood loss minimal. The patient was taken to the recovery room in satisfactory addition without apparent complication Josue Orr M.D., F.A.C.S. Surgeon: Josue Orr Type of Anesthesia: Local MAC Anesthesiologist: Yoko Velez
== END 2023-01-23 11:10 | disposition home or self-care (01) ==
LOC: SDC 06:01 → AC 06:01
PROVIDERS: PCP Family Medicine; Referring Provider Surgery; Visit Provider Surgery
PROC: (CPT 36821; principal; 2023-01-23 07:15)
DX: Z99.2 Dependence on renal dialysis (principal); I50.9 Heart failure, unspecified; I13.0 Hypertensive heart and chronic kidney disease with heart failure and stage 1 through stage 4 chronic kidney disease, or unspecified chronic kidney disease; F41.9 Anxiety disorder, unspecified; F32.A Depression, unspecified; N18.9 Chronic kidney disease, unspecified; F17.220 Nicotine dependence, chewing tobacco, uncomplicated; Z79.82 Long term (current) use of aspirin; Z79.899 Other long term (current) drug therapy; Z86.73 Personal history of transient ischemic attack (TIA), and cerebral infarction without residual deficits; K21.9 Gastro-esophageal reflux disease without esophagitis; Z95.0 Presence of cardiac pacemaker; Z95.3 Presence of xenogenic heart valve
CPT/HCPCS: 36821; 01844; 36415; 80048; 85027; 93005; A4648; J7040; J2405

== ENCOUNTER → 2023-03-18 | Outpatient (CLI) | payer MEDICARE, OTHER, SELFPAY ==
[2023-03-18 14:17] LABS: Absolute Lymphocyte Count 2.07 X10^3/uL (0.83-4.51); Absolute Neutrophil Count 5.8 X10^3/uL (2.0-7.7); Basophil# 0.06 X10^3/uL; Basophil% 0.7 % (0-1); Eosinophil# 0.11 X10^3/uL; Eosinophils% 1.2 % (0-5); Hemoglobin 9.6 g/dL (13.0-16.5); Lymphocyte # 2.07 X10^3/ul (0.83-4.51); Lymphocyte % 23.2 % (19-41); Mean Corpuscular Hgb 27.9 pg (27.0-32.0); Mean Corpuscular Volume 90.1 fL (80-94); Mean Platelet Vol. 8.9 fl (6.2-12.0); Monocyte# 0.85 X10^3/uL; Monocyte% 9.5 % (0-10); NRBC Flagged by Analyzer 0 % (0-5); Neutrophil % 65.2 % (47-70); Platelet Count 276 K/mm3 (150-450); RBC Distribution Width CV 16.4 % (11.6-14.6); RBC Distribution Width SD 53.9 fl (35.1-43.9); Red Blood Count 3.44 M/mm3 (4.6-6.2); White Blood Count 8.9 K/mm3 (4.4-11.0)
[2023-03-18 15:01] LABS: Anion Gap 3 (5-15); BUN 25 mg/dL (7-18); BUN/Creat Ratio 5.3 RATIO (10-20); Chloride 100 mmol/L (98-107); Creatinine, Serum 4.75 mg/dL (0.70-1.30); EST Glomerular Filtration Rate 13 mL/min (>60); Est Glom Filt Rate - Afr Amer 16 mL/min (>60); Glucose 109 mg/dL (74-106); Potassium 5.2 mmol/L (3.5-5.1); Sodium Level 134 mmol/L (136-145)
== END | disposition home or self-care (01) ==
LOC: PAVLAB 13:47
PROVIDERS: PCP Family Medicine; Referring Provider Surgery; Visit Provider Surgery
DX: T82.898A Other specified complication of vascular prosthetic devices, implants and grafts, initial encounter (principal); N18.5 Chronic kidney disease, stage 5; X58.XXXA Exposure to other specified factors, initial encounter
CPT/HCPCS: 36415; 80048; 85025

== ENCOUNTER 2023-04-17 06:33 | Day surgery (SDC) | payer MEDICARE, OTHER, SELFPAY ==
[2023-03-19 07:52] VITALS: BMI 26.4
--- NOTE | 2023-04-17 07:29 | PCM.HP.BLA ---
History and Physical Date of Admission: 04/17/23 Visit Reasons: FISTULA CHECK Chief Complaint: fistula check Is patient in pain?: No Allergies fluoxetine [From Prozac] Allergy (Verified 03/18/23 13:21) suicidalsertraline [From Zoloft] Allergy (Verified 03/18/23 13:21) sucidalIodinated Contrast Media Adverse Reaction (Verified 03/18/23 13:21) passed outrosuvastatin [From Crestor] Adverse Reaction (Verified 03/18/23 13:21) muscle pain Medications alprazolam 0.5 mg tablet (Xanax) 0.5 mg PO BID 08/23/20 [History Confirmed 03/18/23] amlodipine 5 mg tablet 10 mg PO DAILY 08/23/20 [History Confirmed 03/18/23] clomipramine 75 mg capsule 75 mg PO QHS 08/23/20 [History Confirmed 03/18/23] mycophenolate mofetil 250 mg capsule (CellCept) 250 mg PO BID 08/23/20 [History Confirmed 03/18/23] pantoprazole 20 mg tablet,delayed release (Protonix) 20 mg PO DAILY 08/23/20 [History Confirmed 03/18/23] primidone 50 mg tablet 50 mg PO BID tremors 08/23/20 [History Confirmed 03/18/23] tacrolimus 0.5 mg capsule, immediate-release 1 mg PO Q12H 08/23/20 [History Confirmed 03/18/23] aspirin 81 mg tablet,delayed release 81 mg PO .COMPLEX 12/12/22 [History Confirmed 03/18/23] carvedilol 12.5 mg tablet 12.5 mg PO DAILY 12/12/22 [History Confirmed 03/18/23] clonidine HCl 0.1 mg tablet 0.1 mg PO Q4H PRN HTN/TREMORS 12/12/22 [History Confirmed 03/18/23] hydralazine 25 mg tablet 25 mg PO TID 12/12/22 [History Confirmed 03/18/23] isosorbide mononitrate 20 mg tablet 25 mg PO TID 12/12/22 [History Confirmed 03/18/23] hydrocodone-acetaminophen 5-325mg 5mg-325mg 1 tab PO Q6H PRN pain 2 days #5 tabs 01/23/23 [Rx Confirmed 03/18/23] PFSH Medical History Ambulates with cane Anxiety Benign essential tremor BPH with obstruction/lower urinary tract symptoms Cardiology follow-up encounter Chronic cough Chronic kidney disease CPAP (continuous positive airway pressure) dependence Dependence on renal dialysis Depression Easy bruising Excessive bleeding Gastric reflux High cholesterol History of CHF (congestive heart failure) History of edema History of GI bleed History of irregular heartbeat History of renal dialysis History of renal disease History of rheumatic fever History of steroid therapy History of stress test Hx of benign essential tremor Hx of cardiac pacemaker Hypertension Loss of hearing Prostate disease Restless legs Shortness of breath on exertion Skin tear Smoker TIA (transient ischemic attack) Walker as ambulation aid Surgical History History of arteriovenous shunt History of cardiac catheterization History of esophagogastroduodenoscopy (EGD) History of left ventricular assist device (LVAD) Hx laparoscopic cholecystectomy Hx of colonoscopy Hx of heart transplant Hx of heart valve replacement with bioprosthetic valve Family History Father Heart disease Social History Smoking Status: Current every day smoker tobacco type: smokeless tobacco alcohol intake: never substance use type: does not use HPI HPI HPI: 72-year-old gentleman. I have most recently seen him in the office on February 25, 2023. I had created for him a left upper arm brachial cephalic arteriovenous hemodialysis fistula on January 23, 2023. He follows now to see if the fistula can be utilized. He currently is being dialyzed via tunneled catheters right chest. Patient has significant concerns about swelling of his left forearm. He has no particular pain. No fever chills or sweats Exam Const General: cooperative, comfortable and no acute distress HENMT Head: normal to inspection Neck Neck: normal visual inspection Chest Chest palpation & inspection: normal inspection of the chest Resp Effort & Inspection: normal respiratory effort Auscultation: clear to auscultation bilaterally Cardio Rate: regular rate Rhythm: regular rhythm GI Inspection: normal to inspection Musc Cervical Spine: normal cervical lordosis Neuro General: patient alert, patient awake and patient oriented x3 Extrem Other: Left extremity has 2-3+ edema of the left forearm. There is erythema and peau d'orange at the distal left upper arm. The incision itself well-healed. There is no drainage. No tenderness. Tortuosity of the fistula is noted. There is a pulse thrill and bruit. There appears on ultrasound to be some extraluminal thrombus. Following the fistula all the way up I do not see a focal area of stenosis. Psych Appearance: grossly normal Assessment and Plan Assessment and Plan (1) Problem with dialysis access: Status: Acute Qualifiers: Encounter type: initial encounter Qualified Code(s): T82.898A - Other specified complication of vascular prosthetic devices, implants and grafts, initial encounter Plan: The degree of forearm swelling is significant. I am not seeing a particular problem with the fistula but it has matured to quite a reasonable size. I am suspicious that there might be some kind of outflow problem causing the swelling. I do propose for him a left upper extremity fistulogram looking for potential central venous outflow. He may need double accessing but the anastomotic site appears quite good on my inspection. He has had an opportunity to ask and have questions answered. We will schedule procedure at his discretion. Josue Orr M.D., F.A.C.S. I have examined the patient and the H&P has been reviewed. There are no clinical changes since date of exam. Josue Orr M.D., F.A.C.S.
--- NOTE | 2023-04-17 08:37 | PCM.OPRPT ---
Report of Operation Date of Procedure: 04/17/23 Pre-Operative Diagnosis: Swelling left upper extremity status post cephalic vein to brachial artery arteriovenous hemodialysis fistula Post-Operative Diagnosis: High-grade venous stenosis left subclavian vein Surgery/Procedure Performed:: Left upper extremity fistulogram with 12 x 4 [place] venous angioplasty and 16 x 4 [place] venous angioplasty Description of Surgical Findings:: Timeout informed consent was obtained. 72-year-old gentleman was taken to the special procedures lab placed on the table the left upper extremity was sterilely prepped and draped 50 mcg of fentanyl and 2 mg of Versed were given as intravenous sedation ultrasound was used to identify the cephalic vein close to the arterial anastomosis ultrasound was performed demonstrating a widely patent arterial inflow. 2% lidocaine was instilled under ultrasound guidance micropuncture needle was inserted close to the origin of the fistula antegrade with flow. Micropuncture wire and a 6 Australian short sheath dilator was inserted. Using hand-injection of Isovue a fistulogram was obtained of the upper arm. I then used a 035 Glidewire and a 4 Australian glide cath that to gain access to the proximal upper arm. I obtained another fistulogram this demonstrated very high-grade 95% stenosis of the subclavian vein. I then up sheath to a 7 Australian sheath and later in the procedure I upgraded to an 8 Australian sheath. I was able to get a glide cath and Glidewire past the area of stenosis. I then exchanged out for standard 035 J-wire. I placed a 12 x 4 at months balloon and performed balloon angioplasty of the lesion. That was held for 3 minutes. The patient tolerated the procedure well. A follow-up image demonstrated improvement but residual stenosis. That is when I changed to the 8 Australian sheath and I placed a 16 x 4 [place] balloon and performed balloon angioplasty up to 18 ravin of pressure. Total balloon time was 5 minutes. Completion views now demonstrated dramatic improvement in the area of previous stenosis. Collateral flow was markedly diminished. He tolerated the procedure well there is no apparent complication balloon wire and sheath removed few suture of 4-0 nylon was placed. The fistula has an excellent pulse and thrill and bruit. Images demonstrate a widely patent left upper extremity brachial to cephalic arteriovenous fistula with several sidebranches noted in the upper arm. There was high-grade 95% stenosis of the proximal subclavian vein. This appeared to resolve subsequent to the second balloon angioplasty with a 16 x 4 [place] balloon. Josue Orr M.D., F.A.C.S. Surgeon: Josue Orr Type of Anesthesia: Local
== END 2023-04-17 09:45 | disposition home or self-care (01) ==
LOC: CLSP 06:34
PROVIDERS: PCP Family Medicine; Referring Provider Surgery; Visit Provider Surgery
DX: T82.858A Stenosis of other vascular prosthetic devices, implants and grafts, initial encounter (principal); Z94.1 Heart transplant status; Z99.2 Dependence on renal dialysis; N18.5 Chronic kidney disease, stage 5; X58.XXXA Exposure to other specified factors, initial encounter; F17.220 Nicotine dependence, chewing tobacco, uncomplicated; Z79.82 Long term (current) use of aspirin; Z79.899 Other long term (current) drug therapy; Z86.73 Personal history of transient ischemic attack (TIA), and cerebral infarction without residual deficits
CPT/HCPCS: 36902; 76937; 99152; 99153; C1725; J7040; Q9967; C1769; C1894; J3490

== ENCOUNTER 2023-06-17 08:58 | Day surgery (SDC) | payer MEDICARE, OTHER, SELFPAY ==
[2023-06-16 09:51] VITALS: BMI 26.4
--- NOTE | 2023-06-17 09:18 | HP.PCM_ITS ---
History and Physical Date of Admission: 06/17/23 Visit Reasons: FILTRATION AND CANNULATION ISSUES Chief Complaint: filtration and cannulation issues Allergies fluoxetine [From Prozac] Allergy (Verified 05/20/23 14:24) suicidalsertraline [From Zoloft] Allergy (Verified 05/20/23 14:24) sucidalIodinated Contrast Media Adverse Reaction (Verified 05/20/23 14:24) passed outrosuvastatin [From Crestor] Adverse Reaction (Verified 05/20/23 14:24) muscle pain Medications alprazolam 0.5 mg tablet (Xanax) 0.5 mg PO BID 08/23/20 [History Confirmed 05/20/23] amlodipine 5 mg tablet 10 mg PO DAILY 08/23/20 [History Confirmed 05/20/23] clomipramine 75 mg capsule 75 mg PO QHS 08/23/20 [History Confirmed 05/20/23] mycophenolate mofetil 250 mg capsule (CellCept) 250 mg PO BID 08/23/20 [History Confirmed 05/20/23] pantoprazole 20 mg tablet,delayed release (Protonix) 20 mg PO DAILY 08/23/20 [History Confirmed 05/20/23] primidone 50 mg tablet 50 mg PO BID tremors 08/23/20 [History Confirmed 05/20/23] tacrolimus 0.5 mg capsule, immediate-release 1 mg PO Q12H 08/23/20 [History Confirmed 05/20/23] aspirin 81 mg tablet,delayed release 81 mg PO .COMPLEX 12/12/22 [History Confirmed 05/20/23] carvedilol 12.5 mg tablet 12.5 mg PO DAILY 12/12/22 [History Confirmed 05/20/23] clonidine HCl 0.1 mg tablet 0.1 mg PO Q4H PRN HTN/TREMORS 12/12/22 [History Confirmed 05/20/23] hydralazine 25 mg tablet 25 mg PO TID 12/12/22 [History Confirmed 05/20/23] isosorbide mononitrate 20 mg tablet 25 mg PO TID 12/12/22 [History Confirmed 05/20/23] hydrocodone-acetaminophen 5-325mg 5mg-325mg 1 tab PO Q6H PRN pain 2 days #5 tabs 01/23/23 [Rx Confirmed 05/20/23] PFSH Medical History Ambulates with cane Anxiety Benign essential tremor BPH with obstruction/lower urinary tract symptoms Cardiology follow-up encounter Chronic cough Chronic kidney disease CPAP (continuous positive airway pressure) dependence Dependence on renal dialysis Depression Easy bruising Excessive bleeding Gastric reflux High cholesterol History of CHF (congestive heart failure) History of edema History of GI bleed History of irregular heartbeat History of renal dialysis History of renal disease History of rheumatic fever History of steroid therapy History of stress test Hx of benign essential tremor Hx of cardiac pacemaker Hypertension Loss of hearing Prostate disease Restless legs Shortness of breath on exertion Skin tear Smoker TIA (transient ischemic attack) Walker as ambulation aid Surgical History History of arteriovenous shunt History of cardiac catheterization History of esophagogastroduodenoscopy (EGD) History of left ventricular assist device (LVAD) Hx laparoscopic cholecystectomy Hx of colonoscopy Hx of heart transplant Hx of heart valve replacement with bioprosthetic valve Family History Father Heart disease Social History Smoking Status: Current every day smoker tobacco type: smokeless tobacco alcohol intake: never substance use type: does not use HPI HPI Surgical H&P: Yes HPI: Patient is a 72 y/o M I am following for recent infiltration and difficulty cannulating. Patient had a fistulogram on 04/17/[address] Orr due to left upper extremity swelling. 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 Patient was also noted to have several side branches. Patient noted last week he was infiltrated at dialysis. He notes that during treatment the access sites burn the entire time he has treatment. Patient notes that he is hesitant to have them access the fistula due to the lump that he continues to have. Patient is being sent for a fistulogram. Patient dialyzes on , and at [place]. ROS General General: No weight change, appetite, fatigue, colon cancer, breast cancer or weakness HEENT HEENT: No difficulty swallowing, eye injury, eye surgery, swollen glands or hoarseness Endo Endocrine: No thyroid disease, diabetes mellitus, thyroid cancer, Hair loss, heat intolerance or cold intolerance Skin Skin: No rash or changing moles Breast Breast: No left breast lump, right breast lump, nipple discharge, breast pain, abnormal mammogram, abnormal US or breast enlargement Musc Musculoskeletal: No back problems, arthritis, rheumatoid arthritis, gout or joint pain Cardio Cardiovascular: Yes high blood pressure; No murmur, pacemaker, heart disease, atrial fibrillation, heart attack, heart stent, palpitations, shortness of breat with exertion or chest pain Additional Details: Heart transplant 2018 Psych Psychiatric: No depression, anxiety or hearing voices Resp Respiratory: Yes shortness of breath, Yes sleep apnea, No cough, No COPD, No asthma, No emphysema and No wheezing Gastro Gastrointestinal: No abdominal pain, No nausea or vomiting, No diarrhea, No constipation, No blood in stool, No acid reflux, No hemorrhoids, No ulcers, No gallbladder problem and No black,tarry stools Larry Hematologic: No blood thinners, No blood disorders, No bleeding, No anemia and No blood clots Neuro Neurologic: No system reviewed and no additional complaints, except as documented, No as per HPI, No abnormal gait, No abnormal hearing, No abnormal movements, No abnormal speech, No behavioral changes, No burning sensations, No confusion, No convulsions, No disequilibrium, No dizziness, No localized weakness, No frequent falls, No headache(s), No lack of coordination, No loss of vision, No memory loss, No numbness, No other visual disturbances, No radicular pain, No restless legs, No sensory deficit, No syncope, No tingling, No tremor(s), No weakness and No other Exam Const General: cooperative, healthy appearing, comfortable and no acute distress HENOR Head: normal to inspection Eyes General: appearance normal, both eyes and all related structures Neck Neck: normal visual inspection Neck mass: No Resp Effort & Inspection: normal respiratory effort Auscultation: clear to auscultation bilaterally Cardio Rate: regular rate Rhythm: regular rhythm GI Inspection: normal to inspection Musc Cervical Spine: normal cervical lordosis Skin General: no rashes or lesions noted Neuro General: no focal motor deficits and CN's II-XI intact bilaterally Extrem Other: Left upper extremity fistula- good pulse, diminished bruit and thrill. Moderate sized hematoma noted. Psych Appearance: grossly normal Affect: normal affect Assessment and Plan Assessment and Plan (1) Problem with dialysis access: Status: Acute Qualifiers: Encounter type: initial encounter Qualified Code(s): T82.898A - Other specified complication of vascular prosthetic devices, implants and grafts, initial encounter Plan: Dr. Orr will plan to perform a non-urgent left upper extremity fistulogram with possible coiling of side branches versus branch ligation in the office. Procedure details, risks and benefits have been explained. Patient is not currently on any blood thinners. It is unclear to me if he has narrowing superior to the hematoma or if the side branches may be causing an issue during cannulation. I believe a fistulogram would allow us to see both options and allow for any treatment necessary during the procedure. Our computer system was down during the time of the patient's appointment and was unable to access the patient's previous procedure. Patient is able to continue to utilize his fistula. I will also discuss this patient with Dr. Orr upon his return to the office. If agreeable to consider coiling, may need to contact [facility] for availability. I have examined the patient and the H&P has been reviewed. There are no clinical changes since date of exam. Josue Orr M.D., F.A.C.S.
[2023-06-17 09:21] LABS: Hematocrit 34.8 % (40-54); Mean Corp Hgb Conc 31.6 g/dL (32-36); Mean Corpuscular Hgb 29.6 pg (27.0-32.0); Mean Corpuscular Volume 93.8 fL (80-94); Mean Platelet Vol. 8.9 fl (6.2-12.0); Platelet Count 272 K/mm3 (150-450); RBC Distribution Width CV 16.5 % (11.6-14.6); RBC Distribution Width SD 55.8 fl (35.1-43.9); Red Blood Count 3.71 M/mm3 (4.6-6.2); White Blood Count 6.4 K/mm3 (4.4-11.0)
--- NOTE | 2023-06-17 10:52 | OP.PCM_ITS ---
Report of Operation Date of Procedure: 06/17/23 Pre-Operative Diagnosis: Diminished flow left upper extremity brachial cephalic. Venous hemodialysis fistula Post-Operative Diagnosis: High grade left subclavian stenosis with extensive proximal left upper arm venous collateralization Surgery/Procedure Performed:: Left upper extremity fistulogram with 10 x 4 Greybull balloon angioplasty and 16 x 4 Exmore balloon angioplasty central venous stenosis Description of Surgical Findings:: Timeout informed consent was obtained. 72-year-old gentleman was taken to the operating placed upon the table. Throughout the procedure aliquots he received 50 mcg of fentanyl and 3 mg of Versed is intravenous sedation. The left upper extremity was sterilely prepped and draped. 2% lidocaine was used close to the antecubital arterial anastomotic area. Micropuncture needle was inserted antegrade with flow. Micropuncture wire and 6 [place]er short sheath was inserted. Using Isovue contrast 55 cc total throughout fistulogram was obtained in the left upper arm. This demonstrated somewhat tortuous cephalic vein of the upper arm there is seem to be extensive venous collateralization throughout the fistula with significant collateralization in the proximal portion of the vision in the distal upper arm as well as extensive collateralization more centrally in the upper arm. Images however demonstrate what appears to be high-grade stenosis of the subclavian vein proximal to the cephalic arch. Initially I placed a 10 x 4 Greybull balloon over an angled Glidewire perform balloon angioplasty up to 20 ravin of pressure. There appeared to be recoil. I then placed a 16 x 4 Exmore balloon after upgrading to an 8 [place]er sheath. The patient tolerated this fairly well but did have some discomfort at 5 ravin of pressure. The balloon was held briefly and then deflated. Final images demonstrate improvement in the degree of venous stenosis but still at the least 40 to 50% from full expansion compared to the estimated 18 to 20 mm diameter subclavian vein. I did take a moment to contact Dr. Luis A Fontaine by phone and it was agreed that the patient likely would be benefited from a central venous stent. Due to the positioning size and need for additional measurements we elected to defer that to the future after Dr. Fontaine has had a opportunity consult on the patient. Sheath was removed and use suture of 4-0 nylon was placed. I did make an attempt to occlude the vein and perform a retrograde view of the anastomosis. Due to the collaterals present however did not get a good view of the arterial anastomosis however clinically the inflow is very brisk. The patient remained hemodynamically stable throughout the procedure. He had 0 discomfort at the completion of the procedure. Blood loss was minimal. Josue Orr M.D., F.A.C.S. Surgeon: Josue Orr Type of Anesthesia: Local
[2023-06-17 11:26] LABS: Anion Gap 6 (5-15); BUN 29 mg/dL (7-18); Calcium,Total 9.2 mg/dL (8.5-10.1); Chloride 101 mmol/L (98-107); Creatinine, Serum 5.76 mg/dL (0.70-1.30); EST Glomerular Filtration Rate 10 mL/min (>60); Est Glom Filt Rate - Afr Amer 13 mL/min (>60); Estimated Creatinine Clearance 11.38 ml/min; Glucose 93 mg/dL (74-106); Potassium 4.7 mmol/L (3.5-5.1); Sodium Level 134 mmol/L (136-145)
== END 2023-06-17 11:57 | disposition home or self-care (01) ==
PROVIDERS: PCP Family Medicine; Referring Provider Surgery; Visit Provider Surgery
DX: T82.858A Stenosis of other vascular prosthetic devices, implants and grafts, initial encounter (principal); Z94.1 Heart transplant status; X58.XXXA Exposure to other specified factors, initial encounter; I12.9 Hypertensive chronic kidney disease with stage 1 through stage 4 chronic kidney disease, or unspecified chronic kidney disease; N18.9 Chronic kidney disease, unspecified; E78.00 Pure hypercholesterolemia, unspecified; F32.A Depression, unspecified; F41.9 Anxiety disorder, unspecified; F17.220 Nicotine dependence, chewing tobacco, uncomplicated; Z95.0 Presence of cardiac pacemaker; Z99.2 Dependence on renal dialysis; Z79.82 Long term (current) use of aspirin; Z79.899 Other long term (current) drug therapy; Z86.73 Personal history of transient ischemic attack (TIA), and cerebral infarction without residual deficits
CPT/HCPCS: 36415; 36902; 80048; 85027; 99152; 99153; C1725; Q9967; C1769; C1894; J3490

== ENCOUNTER 2024-10-07 09:35 | Day surgery (SDC) | payer MEDICARE, OTHER, SELFPAY ==
[2024-10-07 09:42] VITALS: BMI 26.4
[2024-10-07 09:52] LABS: Hematocrit 32.9 % (40-54); Hemoglobin 10.6 g/dL (13.0-16.5); Mean Corp Hgb Conc 32.2 g/dL (32-36); Mean Corpuscular Volume 93.2 fL (80-94); Mean Platelet Vol. 8.6 fl (6.2-12.0); Platelet Count 259 K/mm3 (150-450); RBC Distribution Width CV 15.0 % (11.6-14.6); RBC Distribution Width SD 51.5 fl (35.1-43.9); Red Blood Count 3.53 M/mm3 (4.6-6.2); White Blood Count 6.5 K/mm3 (4.4-11.0)
[2024-10-07 10:17] LABS: Anion Gap 14 (5-15); BUN 32 mg/dL (4-19); BUN/Creat Ratio 6.3 RATIO (10-20); Calcium,Total 8.9 mg/dL (7.6-11.0); Carbon Dioxide 25.1 mmol/L (21.0-32.0); Chloride 93 mmol/L (98-108); Estimated Creatinine Clearance 12.58 ml/min (50-250); Glucose 100 mg/dL (70-99); Potassium 5.6 mmol/L (3.3-5.1)
--- NOTE | 2024-10-07 11:26 | PCM.HP.STD ---
HPI - General HPI Narrative DIMITRI HERR, is a 74 M who presents with left arm cephalic fistula used since 2022. Has developed left arm edema and prolonged bleeding. [facility] Medical History Benign essential tremor Walker as ambulation aid Ambulates with cane History of renal dialysis History of renal disease Dependence on renal dialysis Chronic kidney disease BPH with obstruction/lower urinary tract symptoms Loss of hearing Depression Anxiety Skin tear History of steroid therapy Prostate disease High cholesterol Easy bruising Excessive bleeding Restless legs Hx of benign essential tremor TIA (transient ischemic attack) History of GI bleed Gastric reflux Smoker CPAP (continuous positive airway pressure) dependence Chronic cough History of edema Shortness of breath on exertion History of stress test History of CHF (congestive heart failure) Cardiology follow-up encounter Hypertension History of irregular heartbeat History of rheumatic fever Hx of cardiac pacemaker Home Medications ?Medication ?Instructions ?Recorded ?Last Taken ?Type alprazolam 0.5 mg tablet (Xanax) 0.5 mg PO BID 08/23/20 10/07/24 History amlodipine 5 mg tablet 10 mg PO DAILY 08/23/20 01/22/23 History clomipramine 75 mg capsule 75 mg PO QHS 08/23/20 01/22/23 History mycophenolate mofetil 250 mg 250 mg PO BID 08/23/20 01/22/23 History capsule (CellCept) pantoprazole 20 mg tablet,delayed 20 mg PO DAILY 08/23/20 01/22/23 History release (Protonix) primidone 50 mg tablet 50 mg PO BID tremors 08/23/20 01/22/23 History tacrolimus 0.5 mg capsule, 1 mg PO Q12H 08/23/20 01/22/23 History immediate-release carvedilol 12.5 mg tablet 12.5 mg PO DAILY 12/12/22 01/22/23 History clonidine HCl 0.1 mg tablet 0.1 mg PO Q4H PRN HTN/TREMORS 12/12/22 01/22/23 History hydralazine 25 mg tablet 25 mg PO TID 12/12/22 10/07/24 History isosorbide mononitrate 20 mg tablet 25 mg PO TID 12/12/22 06/17/23 History hydrocodone-acetaminophen 5-325mg 1 tab PO Q6H PRN pain 2 days #5 11/16/23 Unknown Rx 5mg-325mg tabs Allergy/AdvReac Type Severity Reaction Status Date / Time fluoxetine (From Prozac) Allergy suicidal Verified 05/20/23 14:24 sertraline (From Zoloft) Allergy sucidal Verified 05/20/23 14:24 Iodinated Contrast Media AdvReac passed out Verified 05/20/23 14:24 rosuvastatin (From Crestor) AdvReac muscle pain Verified 05/20/23 14:24 Family History Father Heart disease Surgical History History of arteriovenous shunt History of cardiac catheterization History of esophagogastroduodenoscopy (EGD) History of left ventricular assist device (LVAD) Hx laparoscopic cholecystectomy Hx of colonoscopy Hx of heart transplant Hx of heart valve replacement with bioprosthetic valve Social History Smoking Status: Former smoker alcohol intake: never substance use type: does not use Vital Signs Vital Signs Vital Signs: Weight Weight: 174 lb Body Mass Index (BMI) 26.4 Physical Exam Const alert, oriented x3, no apparent distress and healthy appearing General Appearance: cooperative; Negative for combative or lethargic Orientation / Consciousness: awake Exam Limitations: no limitations HEENT Head and Scalp: normocephalic and atraumatic Eyes EOMs intact bilaterally General Eye: normal appearance of both eyes Neck full ROM General: trachea midline; Negative for tenderness Resp normal respiratory effort and no use of accessory muscles Effort and Inspection: Negative for labored, stridor or audible wheezes Cardio regular rate and regular rhythm Back/Spine Cervical Spine: cervical ROM normal Extremity full ROM and normal capillary refill Skin no rashes or lesions noted and no wounds Neuro oriented x3, CN's II-XII intact bilaterally, no focal motor deficits and no sensory deficits noted Psych thought process normal, cooperative, affect normal, speech normal and activity/motor behavior normal Results Lab / Micro Data 10/07/24 09:42 10/07/24 09:42 Labs: Laboratory Results - last 24 hr 10/07/24 09:42: WBC 6.5, RBC 3.53 L, Hgb 10.6 L, Hct 32.9 L, MCV 93.2, MCH 30.0, MCHC 32.2, RDW Std Deviation 51.5 H, RDW Coeff of Ishmael 15.0 H, Plt Count 259, MPV 8.6, Sodium 132 L, Potassium 5.6 H, Chloride 93 L, Carbon Dioxide 25.1, Anion Gap 14, BUN 32 H, Creatinine 5.06 H, Estim Creat Clear Calc 12.58 L, Est GFR (MDRD) Non-Af 11 L, BUN/Creatinine Ratio 6.3 L, Glucose 100 H, Calcium 8.9 Assessment & Plan Assessment/Plan (1) Arteriovenous fistula stenosis: QUALIFIERS: Encounter type: initial encounter Qualified Code(s): T82.858A - Stenosis of other vascular prosthetic devices, implants and grafts, initial encounter PLAN: -fistulagram
--- NOTE | 2024-10-07 14:46 | OP.PCM_ITS ---
Operative Report (Standard) Operative Information Date of Procedure: 10/07/24 Pre-Operative Diagnosis: Left upper extremity fistula with stenosis Post-Operative Diagnosis: Same, stenosis of subclavian vein at the costoclavicular angle Surgery/Procedure Performed: Fistulogram with angioplasty Intravascular ultrasound inferior vena cava, superior vena cava, left innominate vein, left subclavian vein, cephalic vein [employer] volleyball coach: No Type of Anesthesia: Local and Sedation,Conscious Procedure Start Time: 11:45 Procedure Stop Time: 12:30 Select all DRAINS/GRAFTS/IMPLANTS that apply: None Estimated Blood Loss: 9 Specimen collected: No Description of surgery: HPI: Patient is a 74-year-old male with a left upper extremity fistula that has been in place and used for the last 2 years. Over the last several weeks he has developed increasing swelling of the left upper extremity and prolonged bleeding from the access sites. He presents now for fistulogram. Description of procedure: Upon obtaining informed consent verification correct patient was seen and site the patient was taken to the Sintering [employer] Operator he was positioned prepped and draped in usual sterile fashion. Timeout was performed Sedation ministered Versed and fentanyl. Skin overlying the fistula at the antecubital crease was anesthetized 1% lidocaine the vessel accessed under ultrasound guidance with a micropuncture needle wire. This was then exchanged for the the 7 Pal[place] fistula sheath which was advanced without resistance. Through the 7 Pal[place] sheath hand-injection digital subtraction fistulogram including reflux into the arterial anastomosis and outflow to the central venous system at the atriocaval junction was performed. This revealed a large caliber widely patent fistula with brisk contrast transit and outflow into the subclavian vein. The subclavian vein at the costoclavicular angle had greater than 75% stenosis with the innominate and superior vena cava widely patent with no stenosis. Was felt that this was appropriate for endovascular treatment so the patient was heparinized allowed to circulate for 3 minutes. A glide advantage wire was advanced to the 7 Palauan sheath and utilizing a KMP catheter we navigated into the subclavian vein traversing the area of stenosis and ultimately Diaz the wire and catheter into the inferior vena cava. The catheter was withdrawn and the 7 Palauan sheath exchanged out for an 8 Palau[place] Brite tip sheath which was advanced into position adjacent to the cephalic junction with the subclavian vein. Through the 8 Palauan sheath an intravascular sound probe was advanced and recorded pullback performed of the IVC, SVC, left innominate vein, left subclavian vein, cephalic vein. This confirmed greater than 75% stenosis of the subclavian vein and provide a reference vessel size of the adjacent segments. In order to avoid possible injury from aggressive angioplasty sequential dilation starting with smaller angioplasty balloons was performed. First an 8 mm x 40 Bard conquest was advanced centered on the lesion and inflated to nominal for 2 minutes and deflated withdrawn. Next a Bard [place] 12 x 40 was advanced centered in the lesion and inflated to nominal for 2 minutes and deflated withdrawn. A Bard [place] [email or web address] paclitaxel coated angioplasty balloon 12 x 40 was then advanced and positioned centered lesion inflated at nominal for 2 minutes and deflated withdrawn. The vessel was postdilated with a Bard [place] 16 x 40 centered on the lesion and inflated to nominal. The patient had discomfort with this size so the duration of inflation was abbreviated with 2 separate inflations to nominal for total of approximately 1 minute. The intravascular ultrasound probe was withdrawn and hand-injection venogram resolution of the stenosis with no extravasation or dissection and brisk contrast transit. A 3-0 nylon pursestring was then placed at the access site and the wire and sheath withdrawn followed by 5 minutes of manual pressure. The patient was then taken the recovery area with plan discharge to home. Surgical Findings: See above Complications Complications: No
== END 2024-10-07 14:10 | disposition home or self-care (01) ==
PROVIDERS: PCP Family Medicine; Referring Provider Surgery Trauma Surgery; Visit Provider Surgery Trauma Surgery
DX: T82.858A Stenosis of other vascular prosthetic devices, implants and grafts, initial encounter (principal); Z94.1 Heart transplant status; X58.XXXA Exposure to other specified factors, initial encounter; I10 Essential (primary) hypertension; Z79.899 Other long term (current) drug therapy; Z87.891 Personal history of nicotine dependence
CPT/HCPCS: 36415; 36902; 37252; 37253; 76937; 80048; 85027; 99152; 99153; C1725; C1753; C1769; C1894; C2623; Q9967